=== PATIENT | female | born 1995 | race Caucasian/White ===

== ENCOUNTER 2018-02-20 17:45 | Emergency (ER) | payer MEDICAID, SELFPAY ==
[2018-02-20 18:05] VITALS: BP 109/67; PULSE 83; RESP 16; TEMP 36.8; O2SAT 97
== END 2018-02-20 18:16 ==
PROVIDERS: Emergency Provider Physician Assistant
DX: Z53.21 Procedure and treatment not carried out due to patient leaving prior to being seen by health care provider (principal)

== ENCOUNTER 2018-11-16 22:28 | Emergency (ER) | payer MEDICAID, SELFPAY ==
[2018-11-16 22:33] VITALS: BP 124/61; PULSE 89; RESP 16; TEMP 37; O2SAT 97
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
[2018-11-16 22:58] LABS: Bilirubin Negative (Negative); Blood Trace-intact (Negative); Clarity Clear; Glucose Negative (Negative); Ketones Negative (Negative); Leukocyte Esterase Trace (Negative); Nitrite Negative (Negative); Urobilinogen 0.2 EU/dL (Up TO 0.2)
[2018-11-16 23:05] LABS: RBC Negative (0-2)
[2018-11-16 23:06] LABS: Bacteria Negative HPF (Negative); C & S Indicated? Yes; Casts Negative LPF (Negative); Crystals Negative HPF (Negative); Epithelial Cells Few HPF (Negative); Mucus Negative (Negative)
[2018-11-16] MEDS: MacroBID 100 MG CAP PO (23:11)
== END 2018-11-16 23:20 | disposition home or self-care (01) ==
PROVIDERS: Emergency Provider Emergency Medicine
DX: N30.00 Acute cystitis without hematuria (principal); Z87.440 Personal history of urinary (tract) infections
CPT/HCPCS: 81025; 99283; 81003; 81015; 87086

== ENCOUNTER 2018-12-01 16:22 | Emergency (ER) | payer MEDICAID, SELFPAY ==
[2018-12-01 16:25] VITALS: BP 98/78; PULSE 82; RESP 16; TEMP 36.4; O2SAT 100
[2018-12-01 16:44] LABS: Bilirubin Small (Negative); Blood Trace-intact (Negative); Glucose Negative (Negative); Ketones Trace mg/dL (Negative); Leukocyte Esterase Negative (Negative); Nitrite Negative (Negative); Specific Gravity 1.025 (1.005-1.025); Urobilinogen 0.2 EU/dL (Up TO 0.2); pH 5.5 (5-8)
[2018-12-01 16:48] LABS: Clarity Sl Cloudy
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
[2018-12-01 16:54] LABS: Epithelial Cells Moderate HPF (Negative); WBC 0-2 HPF (0-5)
[2018-12-01 16:55] LABS: Bacteria Rare HPF (Negative)
[2018-12-01 16:56] LABS: C & S Indicated? No; Casts Negative LPF (Negative); Crystals Negative HPF (Negative); Mucus Heavy (Negative)
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
[2018-12-01 17:46] LABS: Bilirubin Small (Negative); Blood Trace-intact (Negative); Clarity Sl Cloudy; Glucose Negative (Negative); Ketones Trace mg/dL (Negative); Leukocyte Esterase Negative (Negative); Nitrite Negative (Negative); Specific Gravity >= 1.030 (1.005-1.025); Urobilinogen 0.2 EU/dL (Up TO 0.2); pH 5.5 (5-8)
[2018-12-01 18:10] LABS: RBC 0-2 (0-2); WBC 0-2 HPF (0-5)
[2018-12-01 18:11] LABS: Bacteria Rare HPF (Negative); C & S Indicated? No; Casts Negative LPF (Negative); Crystals Few Calcium Oxalate HPF (Negative); Epithelial Cells Moderate HPF (Negative); Mucus Heavy (Negative); Other Cells Negative (Negative)
== END 2018-12-01 17:58 | disposition home or self-care (01) ==
PROVIDERS: Emergency Provider Physician Assistant
DX: J02.9 Acute pharyngitis, unspecified (principal); L04.9 Acute lymphadenitis, unspecified
CPT/HCPCS: 81025; 87880; 99283; 81003; 81015; 87081

== ENCOUNTER 2019-01-19 15:12 | Outpatient (REF) | payer MEDICAID, SELFPAY ==
--- NOTE | 2019-01-19 13:30 | PAPFT_PTH ---
PATIENT: DEREK ALFONSO LOC: [facility] U#:[id number] AGE/SX: 23/F ROOM: RE01/19/[address]: Lashay Leon : 1995 BED: DIS: 01/19/2019 SPEC #: [id number] RECD: 01/19/19 18:29 STATUS: MARY REJose #: [id number] KATIE: 01/19/19 13:[address]: Lashay Leon DEPT: [facility] Cytology RECD BY: Gabi Yip ENTERED: 01/19/19 18:29 SP TYPE: PAPFT OTHR DR: Lorena Allred Tissues: 1 - CX/ENDOCX FOR PAP SMEARS Procedures: PAP THIN PREP/[facility] Screening Comments: [id number]
== END 2019-01-19 15:32 ==
LOC: NCHCN 15:12
PROVIDERS: Visit Provider Nurse Practitioner Family
DX: Z12.4 Encounter for screening for malignant neoplasm of cervix (principal)
CPT/HCPCS: 88142

== ENCOUNTER 2019-05-23 12:28 | Outpatient (CLI) | payer MEDICAID, SELFPAY ==
--- NOTE | 2019-05-23 10:38 | DI.RAD_ITS ---
EXAM: XR FOOT LT COMPLETE CLINICAL HISTORY: PAIN AT THE BASE OF THE 5TH METATARSAL TECHNIQUE: The study was performed according to usual protocol. COMPARISON: No exams were available for comparison FINDINGS: Three views were obtained. There are mild degenerative changes of the midfoot joints. No other sign ificant bony abnormality seen. If there is a clinical suspicion of stress fracture or occult fracture, additional evaluation with sia ne scan or MR may be considered.
== END 2019-05-23 12:48 ==
PROVIDERS: Visit Provider Family Medicine
DX: M79.675 Pain in left toe(s) (principal); M79.672 Pain in left foot; M19.072 Primary osteoarthritis, left ankle and foot
CPT/HCPCS: 73630

== ENCOUNTER 2019-07-23 11:53 | Outpatient (REF) | payer MEDICAID, SELFPAY | END 2019-07-23 12:13 | LOC: NCHCN 11:53 | PROVIDERS: Visit Provider Nurse Practitioner Family | DX: R39.89 Other symptoms and signs involving the genitourinary system (principal) | CPT/HCPCS: 87086 ==

== ENCOUNTER 2019-09-07 17:53 | Outpatient (REF) | payer MEDICAID, SELFPAY ==
[2019-09-07 20:11] LABS: Clarity Clear (Clear); Specific Gravity 1.025 (1.005-1.025)
[2019-09-07 20:28] LABS: Bacteria Rare HPF (Negative); C & S Indicated? No; Crystals Negative HPF (Negative); Epithelial Cells Many HPF (Negative); Mucus Negative (Negative); RBC 0-2 HPF (0-2); WBC 0-2 HPF (0-5)
== END 2019-09-07 18:13 ==
LOC: NCHCN 17:53
PROVIDERS: Visit Provider Nurse Practitioner Family
DX: R35.0 Frequency of micturition (principal)
CPT/HCPCS: 81003; 81015

== ENCOUNTER 2020-07-22 14:39 | Outpatient (REF) | payer MEDICAID, SELFPAY ==
[2020-07-22 22:25] LABS: ALT 20 U/L (14-59); AST 16 U/L (15-37); Albumin 3.8 g/dL (3.4-5.0); Alkaline Phosphatase 71 U/L (46-116); Anion Gap 5.2 mmol/L (3-11); BUN 10 mg/dL (7-18); Bilirubin, Total 0.2 mg/dL (0.2-1.0); CO2 29.8 mmol/L (21.0-32.0); CREATININE 0.69 mg/dL (0.55-1.02); Calcium 9.4 mg/dL (8.5-10.1); Chloride 104 mmol/L (98-107); Glucose 104 mg/dL (74-106); Potassium 4.6 mmol/L (3.5-5.1); Sodium 139 mmol/L (136-145)
== END 2020-07-22 14:59 ==
LOC: NCHCN 14:39
PROVIDERS: Visit Provider Nurse Practitioner Family
DX: R22.43 Localized swelling, mass and lump, lower limb, bilateral (principal)
CPT/HCPCS: 80053